=== PATIENT | male | born 1960 | race Caucasian/White ===

== ENCOUNTER 2020-04-13 10:54 | Outpatient (CLI) | payer MEDICARE, SELFPAY ==
[2020-04-13 11:18] LABS: Basophils Absolute Auto 0.03 K/mm3 (0.00-0.10); Basophils Percent Auto 0.5 % (0.0-1.0); Eosinophils Absolute Auto 0.11 K/mm3 (0.02-0.50); Hematocrit 43.3 % (40.0-54.0); Immature Granulocyte Absolute 0.02 K/mm3 (0.00-0.00); Immature Granulocyte Percent A 0.4 % (0.0-0.0); Lymphocytes Absolute Auto 1.53 K/mm3 (1.10-4.50); Lymphocytes Percent Auto 27.7 % (18.0-42.0); Mean Corpuscular HGB Conc 32.3 g/dL (32.0-36.0); Mean Corpuscular Volume 99.1 fL (78.0-102.0); Mean Platelet Volume 9.6 fl (8.7-11.0); Monocytes Absolute Auto 0.54 K/mm3 (0.10-0.90); Monocytes Percent Auto 9.8 % (2.0-11.0); Neutrophils Absolute Auto 3.3 K/mm3 (1.7-7.2); Neutrophils Percent Auto 59.6 % (50.0-70.0); Platelet Count Result 199 K/mm3 (150-420); Red Blood Count 4.37 M/mm3 (4.70-6.10); Red Cell Distribution Width 12.4 % (11.6-14.4); White Blood Count 5.5 K/mm3 (4.8-10.8)
[2020-04-13 12:27] LABS: Alanine Aminotransferase 21 U/L (16-63); Albumin Level 3.8 g/dL (3.4-5.0); Alkaline Phosphatase 106 U/L (46-116); Anion Gap 10.6 mmol/L (7-16); Aspartate Amino Transferase 17 U/L (15-37); Bilirubin,Total 0.3 mg/dL (0.00-1.00); Blood Urea Nitrogen 17 mg/dL (7-18); Calcium 8.6 mg/dL (8.5-10.1); Carbon Dioxide 31 mmol/L (21-32); Chloride 100 mmol/L (98-108); Cholesterol 181 mg/dL (0-200); Estimated Glomerular Filt Rate > 60; Glucose 83 mg/dL (70-99); HDL Direct 47 mg/dL (40-60); LDL Cholesterol Calculated 121 mg/dL (<130); Osmolality Calculated 284 mOsm/kg (285-295); Potassium 4.6 mmol/L (3.5-5.1); Sodium 137 mmol/L (136-145); Triglycerides 65 mg/dL (0-150)
[2020-04-13 13:05] LABS: Thyroid Stimulating Hormone Reflex 2.26 u/IU/mL (0.36-3.74)
== END 2020-04-13 10:55 | disposition home or self-care (01) ==
PROVIDERS: PCP Family Medicine; Visit Provider Family Medicine
DX: E03.9 Hypothyroidism, unspecified (principal); E78.5 Hyperlipidemia, unspecified
CPT/HCPCS: 36415; 80053; 80061; 84443; 85025

== ENCOUNTER 2021-04-02 21:34 | Emergency (ER) | payer MEDICARE, OTHER, SELFPAY ==
--- NOTE | ~2021-04-02 | XR_ITS ---
EXAMINATION: XR ribs LT 2V DATE: 04/02/2021 22:09 INDICATION: Left left rib pain post fall TECHNIQUE: 3 views of the left ribs were obtained. COMPARISON: None FINDINGS: Old healed anterolateral left 10th rib fracture. No acute fractures identified. Hypoplastic riblet on the right side of the L1 vertebral body. Left lung and visualized portions of the right lung are chciho ar. No pulmonary edema, pleural effusion or pneumothorax. Cardiomediastinal silhouette is normal. Oss eous excrescences along the lateral left clavicle suggesting prior left acromioclavicular joint separ ation with trauma to the coracoclavicular ligament. IMPRESSION: 1. No acute left rib fracture or acute cardiopulmonary disease in the left lung or visualized right l sonny. Reviewed, dictated and finalized at location A. IMPRESSION: 1. No acute left rib fracture or acute cardiopulmonary disease in the left lung or visualized right lung.
[2021-04-02 21:44] VITALS: BP 152/78; PULSE 80; RESP 16; TEMP 36.6; O2SAT 98
--- NOTE | 2021-04-02 21:48 | PC.NURSE ---
patient mental age of 4yrs old.
[2021-04-02] MEDS: KETOROLAC (*BKC) 60 MG/2 ML VIAL IM (21:59)
--- NOTE | 2021-04-02 22:20 | ED.GENADULT ---
HPI - General Adult General Chief complaint: Unspecified Stated complaint: rib pain L side Source: patient and family Mode of arrival: ambulatory Limitations: language barrier History of Present Illness HPI narrative: this is a 60-year-old gentleman presents after he fell earlier today after he had a seizure that was witnessed this was early this morning at around 11 in the morning currently no seizure activity no some postictal state. But patient is complaining of left lower rib pain after the seizure he apparently had a fall hitting his ribs, patient has a history of a traumatic brain injury and has right-sided weakness, currently on Tegretol for seizures. Currently no no headache no blurry vision no nausea vomiting no shortness of breath no chest pain no abdominal pain no flank pain no dysuria. Onset (ago): hour(s) Location: left ( Lower rib area) Radiation: non-radiation Severity: moderate Severity scale (1-10): 6 Quality: aching Pain Consistency: constant Relieving factors: immobilization Exacerbating factors: movement Associated symptoms: denies other symptoms and nausea/vomiting Related Data Allergies Allergy/AdvReac Type Severity Reaction Status Date / Time Penicillins Allergy Intermediate Unknown Verified 11/01/20 14:14 Sulfa (Sulfonamide Allergy Hives Verified 11/01/20 14:14 Antibiotics) Review of Systems Review of Systems: All systems reviewed & are unremarkable except as noted in HPI and below PMFSH Past Medical History Medical History (Updated 04/02/21 @ 22:26 by Jose Weiner MD) 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), closed Hyperlipidemia Hypothyroidism Seizure disorder TBI (traumatic brain injury) Family History Family History Mother Depression Family history of hypothyroidism Hypertension Social History Social History Smoking status: Never smoker Gender identity (if verbalized by the patient): Male Exam Const: General: cooperative, healthy appearing and no acute distress HENMT: Head: normal to inspection Ears: hearing grossly normal bilaterally General nose exam: Normal external nose present Face and sinus: normal facial exam Mouth: Yes Normal oral and palatal mucosa present Eyes: General: appearance normal, both eyes and all related structures Visual Dennison: normal visual dennison by confrontation Eyelids: eyelids normal Conjunctivae: conjunctivae normal Sclera: sclerae normal Neck: Neck: normal visual inspection, full ROM, no lymphadenopathy and no meningeal signs Chest: Chest palpation & inspection: normal inspection of the chest and localized rib tenderness with anteroposterior compression ( Left lower) Resp: Effort & Inspection: normal respiratory effort and able to speak in complete sentences Cardio: Jugular venous distension: no JVD Palpation: normal PMI Rate: regular rate Rhythm: regular rhythm Heart sounds: S1 normal heart sound present and S2 normal heart sound present GI: Inspection: normal to inspection Percussion: Yes normal to percussion Back/Spine/Pelvis: Back: no CVA tenderness Skin: General skin exam: normal color and no rashes or lesions noted Neuro: General: oriented to person, oriented to place, oriented to time, patient oriented x3 and tone normal Psych: Appearance: grossly normal and well kempt Mental Status: mental status grossly normal Speech and movement: Slurred speech present ( from traumatic brain injury) Course Course Emergency Course: x-ray reviewed with patient and family with no acute rib fractures patient received IM Toradol and will send medication to his pharmacy. Vital Signs Vital signs: Vital Signs Temperature 36.6 C 04/02/21 21:44 Pulse Rate 80 04/02/21 21:44 Respiratory Rate 16 04/02/21 21:44 Blood Pressure 152/78 H 04/02/21 21:44 Pulse Oximetry 98 04/02/21 21:44 Temperature 3
[2021-04-02 22:33] VITALS: BP 148/70; PULSE 88; RESP 16; TEMP 36.1; O2SAT 97
== END 2021-04-02 22:35 | disposition home or self-care (01) ==
PROVIDERS: Emergency Provider Emergency Medicine; PCP Family Medicine
DX: S23.41XA Sprain of ribs, initial encounter (principal); W19.XXXA Unspecified fall, initial encounter
CPT/HCPCS: 71100; 96372; 99283; J1885

== ENCOUNTER 2021-08-01 11:31 | Outpatient (CLI) | payer MEDICARE, SELFPAY ==
[2021-08-01 11:55] LABS: Basophils Absolute Auto 0.03 K/mm3 (0.00-0.10); Basophils Percent Auto 0.6 % (0.0-1.0); Eosinophils Percent Auto 3.7 % (1.0-6.0); Hematocrit 41.5 % (40.0-54.0); Hemoglobin 13.9 g/dL (14.0-18.0); Immature Granulocyte Absolute 0.01 K/mm3 (0.00-0.00); Immature Granulocyte Percent A 0.2 % (0.0-0.0); Lymphocytes Absolute Auto 1.73 K/mm3 (1.10-4.50); Lymphocytes Percent Auto 32.1 % (18.0-42.0); Mean Corpuscular HGB Conc 33.5 g/dL (32.0-36.0); Mean Corpuscular Hemoglobin 31.7 pg (27.0-31.0); Mean Corpuscular Volume 94.5 fL (78.0-102.0); Mean Platelet Volume 9.4 fl (8.7-11.0); Monocytes Absolute Auto 0.52 K/mm3 (0.10-0.90); Monocytes Percent Auto 9.6 % (2.0-11.0); Neutrophils Absolute Auto 2.9 K/mm3 (1.7-7.2); Neutrophils Percent Auto 53.8 % (50.0-70.0); Platelet Count Result 190 K/mm3 (150-420); Red Blood Count 4.39 M/mm3 (4.70-6.10); Red Cell Distribution Width 12.2 % (11.6-14.4); White Blood Count 5.4 K/mm3 (4.8-10.8)
[2021-08-01 13:22] LABS: Alanine Aminotransferase 24 U/L (16-63); Alkaline Phosphatase 101 U/L (46-116); Anion Gap 10 mmol/L (8-16); Aspartate Amino Transferase 13 U/L (15-37); Bilirubin,Total 0.4 mg/dL (0.00-1.00); Blood Urea Nitrogen 18 mg/dL (7-18); Calcium 8.6 mg/dL (8.5-10.1); Carbon Dioxide 28 mmol/L (21-32); Chloride 101 mmol/L (98-108); Cholesterol 190 mg/dL (0-200); Estimated Glomerular Filt Rate > 60; Glucose 87 mg/dL (70-99); HDL Direct 48 mg/dL (40-60); LDL Cholesterol Calculated 124 mg/dL (<130); Osmolality Calculated 288 mOsm/kg (285-295); Potassium 4.6 mmol/L (3.5-5.1); Sodium 139 mmol/L (136-145); Thyroid Stimulating Hormone Reflex 2.81 u/IU/mL (0.36-3.74); Triglycerides 89 mg/dL (0-150)
== END 2021-08-01 11:32 | disposition home or self-care (01) ==
LOC: CHSLAB 11:35
PROVIDERS: PCP Family Medicine; Visit Provider Family Medicine
DX: E03.9 Hypothyroidism, unspecified (principal); E78.5 Hyperlipidemia, unspecified
CPT/HCPCS: 36415; 80053; 80061; 84443; 85025

== ENCOUNTER 2022-06-26 11:27 | Outpatient (CLI) | payer MEDICARE, SELFPAY ==
[2022-06-26 11:47] LABS: Hematocrit 40.2 % (40.0-54.0); Hemoglobin 13.3 g/dL (14.0-18.0); Mean Corpuscular HGB Conc 33.1 g/dL (32.0-36.0); Mean Corpuscular Hemoglobin 32.1 pg (27.0-31.0); Mean Corpuscular Volume 97.1 fL (78.0-102.0); Mean Platelet Volume 9.4 fl (8.7-11.0); Platelet Count Result 224 K/mm3 (150-420); Red Blood Count 4.14 M/mm3 (4.70-6.10); Red Cell Distribution Width 12.7 % (11.6-14.4); White Blood Count 5.3 K/mm3 (4.8-10.8)
[2022-06-26 12:20] LABS: Alanine Aminotransferase 20 U/L (16-63); Albumin Level 3.7 g/dL (3.4-5.0); Alkaline Phosphatase 118 U/L (46-116); Anion Gap 5 mmol/L (8-16); Aspartate Amino Transferase 14 U/L (15-37); Bilirubin,Total 0.2 mg/dL (0.00-1.00); Blood Urea Nitrogen 22 mg/dL (7-18); Calcium 8.7 mg/dL (8.5-10.1); Carbon Dioxide 28 mmol/L (21-32); Chloride 103 mmol/L (98-108); Cholesterol 183 mg/dL (0-200); Estimated Glomerular Filt Rate > 60; Glucose 119 mg/dL (70-99); HDL Direct 48 mg/dL (40-60); LDL Cholesterol Calculated 114 mg/dL (<130); Osmolality Calculated 286 mOsm/kg (285-295); Potassium 4.5 mmol/L (3.5-5.1); Sodium 136 mmol/L (136-145); Triglycerides 106 mg/dL (0-150)
[2022-06-29 05:47] LABS: Carbamazepine Tegretol 9.8 mcg/mL (4.0-12.0)
== END 2022-06-26 11:28 | disposition home or self-care (01) ==
LOC: CHSLAB 11:28
PROVIDERS: PCP Family Medicine; Visit Provider Family Medicine
DX: G40.909 Epilepsy, unspecified, not intractable, without status epilepticus (principal); E78.5 Hyperlipidemia, unspecified; E11.9 Type 2 diabetes mellitus without complications; E03.9 Hypothyroidism, unspecified
CPT/HCPCS: 36415; 80053; 80061; 80156; 84443; 85027

== ENCOUNTER 2024-04-08 14:19 | Outpatient (CLI) | payer MEDICARE, SELFPAY ==
[2024-04-08 15:25] LABS: Basophils Absolute Auto 0.04 K/mm3 (0.00-0.10); Basophils Percent Auto 0.8 % (0.0-1.0); Eosinophils Absolute Auto 0.12 K/mm3 (0.02-0.50); Eosinophils Percent Auto 2.3 % (1.0-6.0); Hematocrit 43.9 % (40.0-54.0); Hemoglobin 13.1 g/dL (14.0-18.0); Immature Platelet Fraction Pct 2.6 % (1.0-7.0); Lymphocytes Absolute Auto 1.21 K/mm3 (1.10-4.50); Lymphocytes Percent Auto 23.7 % (18.0-42.0); Mean Corpuscular HGB Conc 29.8 g/dL (32-36); Mean Corpuscular Hemoglobin 31.1 pg (27.0-31.0); Mean Corpuscular Volume 104.3 fL (78.0-102.0); Mean Platelet Volume 10.3 fl (8.7-11.0); Monocytes Absolute Auto 0.52 K/mm3 (0.10-0.90); Monocytes Percent Auto 10.2 % (2.0-11.0); Neutrophils Absolute Auto 3.22 K/mm3 (1.70-7.20); Platelet Count Result 162 K/mm3 (150-420); Red Blood Count 4.21 M/mm3 (4.70-6.10); Red Cell Distribution Width 13.2 % (11.6-14.4); White Blood Count 5.1 K/mm3 (4.8-10.8)
[2024-04-08 15:47] LABS: Alanine Aminotransferase 23 U/L (16-63); Albumin Level 3.6 g/dL (3.4-5.0); Alkaline Phosphatase 88 U/L (46-116); Anion Gap 9 mmol/L (4-12); Aspartate Amino Transferase 40 U/L (15-37); Bilirubin,Total 0.5 mg/dL (0.00-1.00); Blood Urea Nitrogen 20 mg/dL (7-18); Calcium 8.5 mg/dL (8.5-10.1); Carbon Dioxide 28 mmol/L (21-32); Chloride 99 mmol/L (98-108); Estimated Glomerular Filt Rate > 60; Glucose 88 mg/dL (70-99); Osmolality Calculated 283 mOsm/kg (285-295); Sodium 136 mmol/L (136-145); Total Protein 7.1 g/dL (6.4-8.2)
[2024-04-08 15:48] LABS: Potassium 5.2 mmol/L (3.5-5.1)
[2024-04-15 09:44] LABS: Carbamazepine Tegretol 8.3 mcg/mL (4.0-12.0)
== END 2024-04-08 14:20 | disposition home or self-care (01) ==
LOC: CHSLAB 14:29
PROVIDERS: PCP Internal Medicine
DX: R56.9 Unspecified convulsions (principal)
CPT/HCPCS: 36415; 80053; 80156; 85025; 85055

== ENCOUNTER 2024-05-11 10:45 | Outpatient (RCR) | payer MEDICARE, SELFPAY ==
--- NOTE | 2024-02-25 11:20 | OPREHPOC ---
Outpatient Therapy Plan of Care This is a Multidisciplinary Plan of Care that may contain components documented by all disciplines (PT, OT, and ST.) PT Problem 1 PT Problem #1 Knowledge Deficit PT Goal 1 Goal 1. compliant with HEP 3x weekly or better Target Visit 6 PT Problem 2 PT Problem #2 Impaired Strength PT Goal 1 Goal 1. patient to display seated R hip flexion of 4/5 or better 2. patient to display 3+/5 R knee extension or better 3. patient to display 3+/5 R knee flexin or better Target Visit 12 PT Problem 3 PT Problem #3 Impaired Functional Mobil PT Goal 1 Goal 1. patient to complete 6 minute walk test without rest and with modified independence with cane 2. tinetti to display moderate fall risk or less 3. patient to complete TUG in 15 seconds or less 4. patient to report no falls while a patient of skilled PT Target Visit 12
--- NOTE | 2024-02-25 11:20 | PTOPEVAL1 ---
Assessment and note entered by JT File, PT Evaluation Information Assessment Status Evaluation Diagnosis generalized weakness 2nd to TBI Onset 02/18/24 Subjective Information patient is a poor historian from his TBI. his brother is with him this morning, and reports he is coming to therapy to get strength and move better. he reports he had a TBI back in 1990 that left him with R side weakness. his brother reports he responds to most questions with yes and no answers. patient reports he has fallen. he reports he would like to get stronger and improve his walking. Reported Pain Level Pain Score 0: Self Report Assessment PT Clinical Summary mr. ortiz is a pleasant 63 yo man who presents to skilled PT services for evaluation and treatment of weakness secondary to a TBI. he presents today with R LE weakness, L hip weakness, high fall risk , and decreased safety with transfers and ambulation. he would benefit from continued skilled PT to address his objective/functional deficits and improve his balance, strength, and ambulation to improve his quality of life and functional activity performance. Plan of Care Interventions Gait Training,Neuro Re-education,Patient/Caregiver Educati,Therapeutic Activities,Therapeutic Exercise PT Services Indicated Yes Treatment Frequency and 3x weekly for 12 visits Duration These treatments will address the objective and functional deficits as defined above. The patient will be advanced safely and appropriately in order for the patient to progress towards his/her prior level of function. Additional exercises will be introduced and as well as a comprehensive home exercise program upon discharge, if needed, ?to ensure carryover of functional gains achieved in the clinic. This treatment plan has been reviewed and agreement upon by the patient.
--- NOTE | 2024-02-27 14:08 | BUOTOPEVAL ---
Assessment and note entered by Gloria Ramírez OT Evaluation Information Assessment Status Evaluation Diagnosis TBI Onset 1990 Subjective Information The patient's family member reports that he lives with his dad and prior to his mother passing, his mother would do everything for him. The patient's family reports that their main concern is to work on his mobility. Therapist educated patient and family on use of OT to maintain/achieve independence and safety. The patient reports pain in whole arm when he tries to move the UE. The patient's family stated that they do not have ADLs goals for the patient but stated it would be nice if he could do things for himself. Reported Pain Level Pain Score 0: Self Report Pain Score 0: Self Report Assessment OT Clinical Summary The patient is a 63 year old male who was referred to outpatient OT due to TBI in 1990 with weakness from lack of mobility. The patient presents with difficulty with word finding and speech concerns making it difficult to communicate at times. The patient is able to answer yes and no questions accurately and is pleasant throughout entire evaluation. The patient demonstrates moderately to minimally impaired coordination of L hand, limited ROM of R hand with subluxation of R shoulder, and requires physical assist for daily tasks, the patient demonstrates good understanding of simple instructions. The patient requires skilled OT to address deficits and increase independence and safety at home. Plan of Care Interventions Therapeutic Exercise,Manual Therapy,Neuro Re- education,Therapeutic Activities,Hot Pack/Cold Pack,Cognitive Function,Electrical Stimulation, Self-Care/Home Management OT Services Indicated Yes Treatment Frequency and 2x/week for 10 visits. Duration These treatments will address the objective and functional deficits as defined above. The patient will be advanced safely and appropriately in order for the patient to progress towards his/her prior level of function. Additional exercises will be introduced and as well as a comprehensive home exercise program upon discharge, if needed, ?to ensure carryover of functional gains achieved in the clinic. This treatment plan has been reviewed and agreement upon by the patient.
--- NOTE | 2024-03-02 16:35 | BUSTOPEVAL1 ---
Assessment and note entered by Martha Desir, BUILDING CONSTRUCTION PROFESSOR Evaluation Information Assessment Status Evaluation Diagnosis Traumatic brain injury S06.9XAS, Cognitive- communication deficit R41.841 Subjective Information The patient was referred for a skilled ST evaluation due to ongoing difficulties with communication due suffering from a traumatic brain injury in the past. The patient primarily communicates through yes/no questions, along with saying yeah and use of gestures to communicate. Throughout the assessment the patient frequently said yeah. He also independently said, thank you, what and imitated words with prompting throughout the session. The patient reported that he gets frustrated when attempting to communicate want/needs/ideas with unfamiliar listeners. Reported Pain Level Pain Score 0: Self Report Pain Score 5: Self Report Pain Score Moderate Pain: Fisher Mohr Pain Score 0: Self Report Pain Score 0: Self Report Additional Pain Score Comments Patient often touched his right shoulder and knee and said ow. He was unable to give a number score for his pain due to difficulty with communication. Additional Pain Score Comments L knee Assessment ST Clinical Summary Patient was referred for a skilled ST evaluation by his doctor due to ongoing difficulty with communication post traumatic brain injury in the past. The patient reported that he has difficulty communicating wants/needs/ideas and will often get frustrated with communication breakdowns. Throughout the assessment the patient often spoke with the word yeah when communicating. He presented with significant difficulty in using single words, phrases, sentences, or use of graphic expression to communicate during the session. Through language testing the patient presented with good skills in object identification, simple yes/no questions, simple paragraph retention through yes/no questions, imitation of vowels, single words, confrontational naming with high frequency target common target words and copying letters, numbers and words. The patient presented with difficulty identifying body parts, answering moderate/complex yes/no questions, following 1-2 step directions, moderate paragraph retentio
--- NOTE | 2024-03-30 12:18 | OPREHPOC ---
Outpatient Therapy Plan of Care This is a Multidisciplinary Plan of Care that may contain components documented by all disciplines (PT, OT, and ST.) PT Problem 1 PT Problem #1 Knowledge Deficit PT Goal 1 Goal 1. compliant with HEP 3x weekly or better Target Visit 6 Progress Not Met PT Problem 2 PT Problem #2 Impaired Strength PT Goal 1 Goal 1. patient to display seated R hip flexion of 4/5 or better -not met 2. patient to display 3+/5 R knee extension or better -not met 3. patient to display 3+/5 R knee flexin or better -not met Target Visit 12 Progress Not Met PT Problem 3 PT Problem #3 Impaired Functional Mobil PT Goal 1 Goal 1. patient to complete 6 minute walk test without rest and with modified independence with cane - partially met 2. tinetti to display moderate fall risk or less - not tested 3. patient to complete TUG in 15 seconds or less -not met 4. patient to report no falls while a patient of skilled PT Target Visit 12 OT Problem 1 OT Problem #1 Knowledge Deficit OT Goal 1 Goal The patient's family and patient will demonstrate 100% knowledge and return demonstration for UE HEP in order to maintain strength and mobility of R UE and L UE as possible. Target Visit 10 OT Problem 2 OT Problem #2 Pain OT Goal 1 Goal The patient will demonstrate decreased subluxation of R shoulder in order to decrease pain in UE for ability to dress without pain. Target Visit 10 OT Problem 3 OT Problem #3 Impaired Range of Motion OT Goal 1 Goal The patient will demonstrate increased digit extension of R hand and improvement in elbow PROM for ability to dress without pain and decrease risk of skin breakdown. Target Visit 10 OT Problem 4 OT Problem #4 Impaired Coordination OT Goal 1 Goal The patient will demonstrate incr
--- NOTE | 2024-03-30 12:18 | PTOPPROG ---
Assessment and note entered by April Dubon, PT Evaluation Information Assessment Status Progress Diagnosis generalized weakness secondary to TBI Onset 02/18/24 Subjective Information Patient is a poor historian so his brother is giving an update. His brother reports he is noticing improved mobility since patient has started PT. He is unsure if patient has fallen as he only sees him on Tuesdays and to bring him to PT. Patient has not fallen when he has been with his brother. The brother does report that PT and OT are the only exercise patient gets and the only time patient gets out of the house. Assessment PT Clinical Summary Rayray Gonsalez has completed 10 skilled PT visits for generalized weakness. He is demonstrating improvements in endurance, sit to stand technique, and mildly with right LE strength. He continues to demonstrate a high fall risk per the TUG test, decreased endurance with 6 minute walk test, decreased right knee strength, and decreased balance. He will continue to benefit from skilled PT to further address these limitations. Plan of Care Interventions Neuro Re-education,Patient/Caregiver Educati, Therapeutic Activities,Therapeutic Exercise PT Services Indicated Yes Treatment Frequency and Continue POC x 2 more visits Duration These treatments will address the objective and functional deficits as defined above. The patient will be advanced safely and appropriately in order for the patient to progress towards his/her prior level of function. Additional exercises will be introduced and as well as a comprehensive home exercise program upon discharge, if needed, ?to ensure carryover of functional gains achieved in the clinic. This treatment plan has been reviewed and agreement upon by the patient.
--- NOTE | 2024-03-31 13:26 | BUOTOPDC ---
Assessment and note entered by Gloria Ramírez OT Evaluation Information Assessment Status Discharge Diagnosis TBI Onset 1990 Subjective Information The patient's family member reports that he lives with his dad and prior to his mother passing, his mother would do everything for him. The patient's family reports that their main concern is to work on his mobility. Therapist educated patient and family on use of OT to maintain/achieve independence and safety. The patient reports pain in whole arm when he tries to move the UE. The patient's family stated that they do not have ADLs goals for the patient but stated it would be nice if he could do things for himself. Reported Pain Level Pain Score 0: Self Report Pain Score 0: Self Report Pain Score 0: Self Report Pain Score Mild Pain: Fisher Mohr Pain Score 4,5: Self Report Pain Score 0: Self Report Pain Score Mild Pain: Fisher Mohr Pain Score 0: Self Report Pain Score 0: Self Report Pain Score 0: Self Report Pain Score 0: Self Report Pain Score 0: Self Report Pain Score 0: Self Report Pain Score 0: Self Report Pain Score 0: Self Report Pain Score 0: Self Report Pain Score 0: Self Report Pain Score Moderate Pain: Fisher Mohr Pain Score 0: Self Report Pain Score 5: Self Report Pain Score Moderate Pain: Fisher Mohr Pain Score 0: Self Report Pain Score 0: Self Report Additional Pain Score Comments L knee Additional Pain Score Comments Patient often touched his right shoulder and knee and said ow. He was unable to give a number score for his pain due to difficulty with communication. Additional Pain Score Comments L knee Assessment OT Clinical Summary The patient demonstrates significant progress in R UE ROM, education of HEP and splint usage, L UE fine motor coordination, independence with ADLs leading to maintainin
--- NOTE | 2024-03-31 13:26 | BUOTOPDC ---
Assessment and note entered by Gloria Ramírez OT Evaluation Information Assessment Status Discharge Diagnosis TBI Onset 1990 Subjective Information The patient's family member reports that he lives with his dad and prior to his mother passing, his mother would do everything for him. The patient's family reports that their main concern is to work on his mobility. Therapist educated patient and family on use of OT to maintain/achieve independence and safety. The patient reports pain in whole arm when he tries to move the UE. The patient's family stated that they do not have ADLs goals for the patient but stated it would be nice if he could do things for himself. Reported Pain Level Pain Score 0: Self Report Pain Score 0: Self Report Pain Score 0: Self Report Pain Score Mild Pain: Fisher Mohr Pain Score 4,5: Self Report Pain Score 0: Self Report Pain Score Mild Pain: Fisher Mohr Pain Score 0: Self Report Pain Score 0: Self Report Pain Score 0: Self Report Pain Score 0: Self Report Pain Score 0: Self Report Pain Score 0: Self Report Pain Score 0: Self Report Pain Score 0: Self Report Pain Score 0: Self Report Pain Score 0: Self Report Pain Score Moderate Pain: Fisher Mohr Pain Score 0: Self Report Pain Score 5: Self Report Pain Score Moderate Pain: Fisher Mohr Pain Score 0: Self Report Pain Score 0: Self Report Assessment OT Clinical Summary The patient demonstrates significant progress in R UE ROM, education of HEP and splint usage, L UE fine motor coordination, independence with ADLs leading to maintaining function of B arms and independence to highest level at end of care. The patient demonstrated good progress throughout therapy but due to medical condition and the rigidity of R UE, the patient has met highest level of function and is educated to continue
--- NOTE | 2024-04-07 11:26 | OPREHPOC ---
Outpatient Therapy Plan of Care This is a Multidisciplinary Plan of Care that may contain components documented by all disciplines (PT, OT, and ST.) PT Problem 1 PT Problem #1 Knowledge Deficit PT Goal 1 Goal 1. compliant with HEP 3x weekly or better Target Visit 6 Progress Not Met Comment only exercising when at therapy. PT Problem 2 PT Problem #2 Impaired Strength PT Goal 1 Goal 1. patient to display seated R hip flexion of 4/5 or better -met 2. patient to display 3+/5 R knee extension or better -not met 3. patient to display 3+/5 R knee flexion or better -not met Target Visit 12 Progress Partially Met PT Problem 3 PT Problem #3 Impaired Functional Mobil PT Goal 1 Goal 1. patient to complete 6 minute walk test without rest and with modified independence with cane - partially met 2. tinetti to display moderate fall risk or less - not met 3. patient to complete TUG in 15 seconds or less -not met 4. patient to report no falls while a patient of skilled PT. met Target Visit 16 OT Problem 1 OT Problem #1 Knowledge Deficit OT Goal 1 Goal The patient's family and patient will demonstrate 100% knowledge and return demonstration for UE HEP in order to maintain strength and mobility of R UE and L UE as possible. Target Visit 10 Progress Partially Met OT Problem 2 OT Problem #2 Pain OT Goal 1 Goal The patient will demonstrate decreased subluxation of R shoulder in order to decrease pain in UE for ability to dress without pain. Target Visit 10 Progress Partially Met OT Problem 3 OT Problem #3 Impaired Range of Motion OT Goal 1 Goal The patient will demonstrate increased digit extension of R hand and improvement in elbow PROM for ability to dress without pain and decrease risk of skin breakdown. Target V
--- NOTE | 2024-04-07 11:26 | PTOPREEVAL ---
Assessment and note entered by JT File, PT Evaluation Information Assessment Status Re-evaluation Diagnosis generalized weakness secondary to TBI, maintenance program Onset 02/18/24 Subjective Information reviewed recent history and changes with patient's brother as patient is a poor historian. he has had one seizure like episode this morning prior to therapy. his brother reports he has not had any for about 4 years. he reports the patient does not do much at home, and this is his only exercise/ times he leaves the home. he would like to continue to get him out of the house to exercise. he reports noticing an improvement in his movement since coming to therapy. according to his brother who sees him 2x weekly, he has had no falls in since beginning therapy. Reported Pain Level Pain Score 0: Self Report Assessment PT Clinical Summary mr. ortiz presents to skilled PT for his 12th skilled PT visit. he presents today having seizure like activity prior to coming to therapy. he does also have a seizure like episode during therapy where he became absent for about 1 minute. vitals were assessed prior to treatment beginning and were normal. he had an elevated BP during his episode, but then back to normal BP after his episode. prior to this episode, his gait, transfers, balance, and ambulation were re- assessed. he presents still with deficits in balance per the tinetti, tug, and 5x sit to stand, but improvement is made in his ambulation safety, transfer safety, and R hip strength. he would benefit from continued skilled PT under maintenance therapy protocol due to the nature of his symptoms secondary to a TBI, and patient not getting any other activity/exercises except for when coming to therapy. Plan of Care Interventions Neuro Re-education,Patient/Caregiver Educati, Therapeutic Activities,Therapeutic Exercise PT Services Indicated Yes Treatment Frequency and continue skilled PT 1x weekly for 4 more visits in Duration a maintenance program These treatments will address the objective and functional deficits as defined above. The patient will be advanced safely and appropriately in order for the patient to progress towards his/her prior level of function. Additional exercises will be introduced and as well as a comprehensive home exercise program upon discharge, if needed, ?to ensure carryover of functional gains achieved in the clinic. This treatment plan has been reviewed and agre
--- NOTE | 2024-04-19 10:40 | PCSTNOTE ---
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
--- NOTE | 2024-05-06 15:09 | OPREHPOC ---
Outpatient Therapy Plan of Care This is a Multidisciplinary Plan of Care that may contain components documented by all disciplines (PT, OT, and ST.) PT Problem 1 PT Problem #1 Knowledge Deficit PT Goal 1 Goal 1. compliant with HEP 3x weekly or better Target Visit 6 Progress Not Met Comment only exercising when at therapy. PT Problem 2 PT Problem #2 Impaired Strength PT Goal 1 Goal 1. patient to display seated R hip flexion of 4/5 or better -met 2. patient to display 3+/5 R knee extension or better -met 3. patient to display 3+/5 R knee flexion or better -met Target Visit 20 Progress Partially Met PT Problem 3 PT Problem #3 Impaired Functional Mobil PT Goal 1 Goal 1. patient to complete 6 minute walk test without rest and with modified independence with cane - met for time, not for independence 2. tinetti to display moderate fall risk or less - not met 3. patient to complete TUG in 15 seconds or less -not met, but progressed towards 4. patient to report no falls while a patient of skilled PT. met Target Visit 20 OT Problem 1 OT Problem #1 Knowledge Deficit OT Goal 1 Goal The patient's family and patient will demonstrate 100% knowledge and return demonstration for UE HEP in order to maintain strength and mobility of R UE and L UE as possible. Target Visit 10 Progress Partially Met OT Problem 2 OT Problem #2 Pain OT Goal 1 Goal The patient will demonstrate decreased subluxation of R shoulder in order to decrease pain in UE for ability to dress without pain. Target Visit 10 Progress Partially Met OT Problem 3 OT Problem #3 Impaired Range of Motion OT Goal 1 Goal The patient will demonstrate increased digit extension of R hand and improvement in elbow PROM for ability to dress without pain and decrease risk of skin breakdown. Target V
--- NOTE | 2024-05-06 15:09 | PTOPREEVAL ---
Assessment and note entered by JT File, PT Evaluation Information Assessment Status Re-evaluation Diagnosis generalized weakness secondary to TBI, maintenance program Onset 02/18/24 Subjective Information patient reports he feels Good today. he has no pain. he reports he has had no falls. Reported Pain Level Pain Score 0: Self Report Pain Score 0: Self Report Assessment PT Clinical Summary mr. ortiz presents to skilled PT for his 4th skilled therapy visit since beginning maintenance therapy. he displays improvement in TUG performance and R LE strength since his last re- evaluation. he continues to benefit from maintenance therapy due to his neurological injury of a TBI, and not being able to independently perform exercises safely and independently at home . Plan of Care Interventions Gait Training,Neuro Re-education,Patient/Caregiver Educati,Therapeutic Activities,Therapeutic Exercise PT Services Indicated Yes Treatment Frequency and continue skilled PT 1x weekly for 4 more visits Duration These treatments will address the objective and functional deficits as defined above. The patient will be advanced safely and appropriately in order for the patient to progress towards his/her prior level of function. Additional exercises will be introduced and as well as a comprehensive home exercise program upon discharge, if needed, ?to ensure carryover of functional gains achieved in the clinic. This treatment plan has been reviewed and agreement upon by the patient.
--- NOTE | 2024-05-20 13:08 | PCPTNOTE ---
Cancelled session today. Brother reports pt is still sleeping.
--- NOTE | 2024-05-20 13:30 | PCSTNOTE ---
Patient's brother called & cancelled scheduled appointment this date due to patient sleeping and is very agitated when awoken.
--- NOTE | 2024-05-27 13:16 | PCSTNOTE ---
This treatment is being continued on visit number [id number]. Please see documentation on both accounts to view progress. Completed interventions, outcomes, and problems have been marked as Inactive to facilitate the copying of the Care plan routine for recurring accounts.
== END 2024-05-25 23:59 | disposition home or self-care (01) ==
LOC: CHSST 10:45
PROVIDERS: Visit Provider Clinical Nurse Specialist Adult Health
DX: S06.9XAS Unspecified intracranial injury with loss of consciousness status unknown, sequela (principal); R41.841 Cognitive communication deficit
CPT/HCPCS: 92507; 92523; 97110; 97112; 97140; 97161; 97166; 97530; 97750

== ENCOUNTER 2024-07-22 13:00 | Outpatient (RCR) | payer MEDICARE, SELFPAY ==
--- NOTE | 2024-05-27 13:16 | PCSTNOTE ---
The treatment documented on this account is a continuation of the treatment documented on visit number [id number]. Please see documentation on both accounts to view progress. The Plan of Care has been transitioned and updated within the new A#. I have addressed and agree with the discipline specific Problems, Interventions, and Goals for the current certification period. Completed interventions, outcomes, and problems have been marked as Inactive to facilitate the copying of the Care plan routine for recurring accounts.
--- NOTE | 2024-06-03 17:57 | STOPPROG ---
Assessment and note entered by Martha Desir, MOTEL FRONT DESK ATTENDANT Evaluation Information Assessment Status Progress Diagnosis Traumatic brain injury S06.9XAS, Cognitive- communication deficit R41.841 Onset unknown, 01-19-24 Subjective Information The patient was referred for a skilled ST evaluation due to ongoing difficulties with communication due to suffering from a traumatic brain injury in the past. Prior to treatment the patient primarily communicated through yes/no questions, along with saying yeah and use of gestures to communicate. He produced a few words independently but mainly required assistance to attempt to respond through verbal means. The patient has completed a total of [address] treatment sessions since the evaluation. He has demonstrated improvements in one and two step verbal directions, moderately complex yes/no questions, single letter and word comprehension skills, automatic speech and single word imitation skills. The patient reported that he gets frustrated when attempting to communicate want/ needs/ideas with unfamiliar listeners. Assessment ST Clinical Summary Patient was referred for a skilled ST evaluation by his doctor due to ongoing difficulty with communication post traumatic brain injury in the past. The patient reported that he had difficulty communicating wants/needs/ideas and would often get frustrated with communication breakdowns. The patient has completed a total of [address] sessions for the treatment of cognitive- communication deficits. The patient has shown improvements in answering moderate level complexity yes/no questions, following 1 step directions with 90% accuracy and two step directions with 50% accuracy, single word comprehension skills, simple item naming and imitation at the single word level. The patient continues to show improvements in single word use, imitation skills and an increase in attempt to use words more frequently with independence. The patient continues to struggle to communicate through words and often relies on gestures to attempt to get his point across. Frequently the attempt is given but the listener in unable to understand what the patient is saying. These deficits impact the patient's ability to communicate wants/needs/ideas in various
--- NOTE | 2024-06-10 15:02 | OPREHPOC ---
Outpatient Therapy Plan of Care This is a Multidisciplinary Plan of Care that may contain components documented by all disciplines (PT, OT, and ST.) PT Problem 1 PT Problem #1 Knowledge Deficit PT Goal 1 Goal 1. compliant with HEP 3x weekly or better Target Visit 6 Progress Not Met Comment . PT Problem 2 PT Problem #2 Impaired Strength PT Goal 1 Goal 1. patient to display seated R hip flexion of 4/5 or better -met 2. patient to display 3+/5 R knee extension or better -met 3. patient to display 3+/5 R knee flexion or better -met Target Visit 20 Progress Met PT Problem 3 PT Problem #3 Impaired Functional Mobil PT Goal 1 Goal 1. patient to complete 6 minute walk test without rest and with modified independence with cane - met 2. tinetti to display moderate fall risk or less - not met 3. patient to complete TUG in 15 seconds or less -not met, but progressed towards 4. patient to report no falls while a patient of skilled PT. met Target Visit 20 Progress Partially Met OT Problem 1 OT Problem #1 Knowledge Deficit OT Goal 1 Goal The patient's family and patient will demonstrate 100% knowledge and return demonstration for UE HEP in order to maintain strength and mobility of R UE and L UE as possible. Target Visit 10 Progress Partially Met OT Problem 2 OT Problem #2 Pain OT Goal 1 Goal The patient will demonstrate decreased subluxation of R shoulder in order to decrease pain in UE for ability to dress without pain. Target Visit 10 Progress Partially Met OT Problem 3 OT Problem #3 Impaired Range of Motion OT Goal 1 Goal The patient will demonstrate increased digit extension of R hand and improvement in elbow PROM for ability to dress without pain and decrease
--- NOTE | 2024-06-10 15:02 | PTOPDC ---
Assessment and note entered by JT File, PT Evaluation Information Assessment Status Discharge Diagnosis generalized weakness secondary to TBI, maintenance program Onset 02/18/24 Subjective Information patient reports no pain in therapy. his brother is with him today to review progress and future plans. patient has been compliant with 1x weekly skilled maintenance rehab for the past 8 weeks. Reported Pain Level Pain Score 0: Self Report Pain Score 0: Self Report Assessment PT Clinical Summary patient reports no pain in therapy. his brother is with him today to review progress and future plans. patient has been attending maintenance therapy for about 8 weeks now. he is maintaining ambulation, balance, and functional performance. at this time, patient and his brother were educated about trying our fall prevention class and taking a break from continued skilled maintenance therapy. they are in agreement with this plan. he will DC skilled maintenance therapy today, and continue with fall prevention class 1-2 times a week. Plan of Care PT Services Indicated Yes
--- NOTE | 2024-07-22 17:41 | STOPDC ---
Assessment and note entered by Martha Desir, DOPE AND FABRIC WORKER Evaluation Information Assessment Status Discharge Diagnosis Traumatic brain injury S06.9XAS, Cognitive- communication deficit R41.841 Onset unknown, 01-19-24 Subjective Information The patient was referred for a skilled ST evaluation due to ongoing difficulties with communication due to suffering from a traumatic brain injury in the past. Prior to treatment the patient primarily communicated through yes/no questions, along with saying yeah and use of gestures to communicate. He produced a few words independently but mainly required assistance to attempt to respond through verbal means. The patient has completed a total of [address] treatment sessions since the evaluation. He has demonstrated improvements in one and two step verbal directions, moderately complex yes/no questions, single letter and single word comprehension skills, automatic speech and single word imitation skills. The patient has recently plateaued with overall skills and skilled ST treatment is no longer warranted at this time. Reported Pain Level Pain Score 0: Self Report Assessment ST Clinical Summary Patient was referred for a skilled ST evaluation by his doctor due to ongoing difficulty with communication post traumatic brain injury in the past. The patient reported that he had difficulty communicating wants/needs/ideas and would often get frustrated with communication breakdowns. The patient has completed a total of [address] sessions for the treatment of cognitive- communication deficits since the initial evaluation on 03-02-24. The patient has shown improvements in answering moderate level complexity yes/no questions, following 1 step directions with 90% accuracy and two step directions with 40-50% accuracy, single word comprehension skills, 2-3 word comprehension skills, simple item naming and imitation at the single word level. The patient continues to show improvements in single word use, imitation skills and an increase in attempt to use words more frequently with independence but has currently reached max rehab potential at this time. The patient continues to exhibit difficulty using single words to communicate and often resorts to use of gestures to
== END 2024-07-22 13:45 | disposition home or self-care (01) ==
LOC: CHSST 13:00
PROVIDERS: Visit Provider Clinical Nurse Specialist Adult Health
DX: S06.9XAS Unspecified intracranial injury with loss of consciousness status unknown, sequela (principal); R41.841 Cognitive communication deficit
CPT/HCPCS: 92507; 97110; 97112

== ENCOUNTER 2025-01-01 17:53 | Emergency (ER) | payer MEDICARE, SELFPAY ==
--- NOTE | ~2025-01-01 | XR_ITS ---
XR ribs RT 2V Ordering provider: Jose Weiner MD History: . Fall, posterior Rt. rib pain . Comparison: April 12, 2021 FINDINGS: BONES: No acute right rib fracture or fracture of the visualized osseous structures. Possible fracture in the fifth rib anteriorly. LUNGS: No effusions or infiltrates. No pneumothorax. SOFT TISSUES: Normal. IMPRESSION: Possible fracture in the right fifth rib anteriorly. Clinical correlation advised. Reviewed, dictated and finalized at location A. [facility] IMPRESSION: Possible fracture in the right fifth rib anteriorly. Clinical correlation advis ed.
--- OUTSIDE RECORDS SUMMARY | 2025-01-01 17:55 | XMS_ITS | Encounter Summary ---
Author Organization [employer] Address [address] [place] [address] Care Team Providers Care Cotton Converter Name Role Phone Unavailable Primary Care Provider Unavailabl e Encounter Details Date Type Department Care Team (Late st Contact Info) Description 09/21/2007 Outpatient Historical Division of Neurology 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
--- OUTSIDE RECORDS SUMMARY | 2025-01-01 17:55 | XMS_ITS | Encounter Summary ---
Author Organization [employer] Address 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 Gender Identity Not on file Sexual Orientation Not on file documented as of this encounter Plan of Treatment Not on file documented as of this encounter Procedures Procedure Name Priority Date/Time Associated Diagnosis Comments CARBAMAZEPINE LEVEL Routine 04/24/2005 1 0:43 AM CDT documented in this encounter Results * CARBAMAZEPINE LEVEL (04/24/2005 10:43 AM CDT) CARBAMAZEPINE LEVEL 11.3 4.0 - 12.0 ug/mL INTERFACE SYSTEM Comment:Carbamazepine Toxic Level => 20 ug/mL 04/24/2005 10:4 3 AM CDT us Robbi Shelley MD CHEMISTRY ORDERABLES Final Resu lt INTERFACE SYSTEM Refer to clinic/hospital department documented in this encounter Visit Diagnoses Diagnosis Intracranial injury of other and unspecified nature, without mention of open intracranial wound, with no loss of consciousness (CMS/HCC)- Primary Intracranial injury of other and unspecified nature, without mention of open intracranial wound, with no loss of consciousness documented in this encounter
--- OUTSIDE RECORDS SUMMARY | 2025-01-01 17:55 | XMS_ITS | Encounter Summary ---
Author Organization [employer] Address [address] [place] [address] Care Team Providers Care Core Java Engineer Name Role Phone Unavailable Primary Care Provider Unavailabl e Encounter Details Date Type Department Care Team (Latest Contact Info) Description 04/08/2001 Outpatient Historical [facility] Shelley, MD Robbi NO ADDRESS ON FILE Intracranial injury of other and unspecified nature, without mention of open intracranial wound, with no loss of consciousness (CMS/HCC) (Primary Dx) Social History Tobacco Use Types Packs/Day Years Used Date Smoking Tobacco: Never Assessed Sex and Gender Information Value Date Recorded Sex Assigned at Not on file 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
--- OUTSIDE RECORDS SUMMARY | 2025-01-01 17:55 | XMS_ITS | Clinical Summary ---
Author Organization [facility] Address [address], [address] [address] Phone Care Team Providers Care Resaw Tailer Name Role Phone Flynn Pryor MD Primary Care Provider [phone] Liana Barraza APRN, HEEL PACKER Unavailable [phone]- [phone] Allergies Active Allergy Reactions Criticality Noted Date Comments Other Unknown Allergic to Most Antibiotics ( Is able to take CECLOR) Medications latanoprost (XALATAN) 0.005 % SolutionIndicati ons:Increased Intraocular Pressure Place 1 Drop in both eyes nightly. Indications: Increased Pressure Within the Eye 4 Active clomiPRAMINE (ANAFRANIL) 25 MG CapsuleIndicatio ns:Obsessive-com pulsive disorder, unspecified type TAKE 1 CAPSULE BY MOUTH EVERY DAY AT NIGHT 90 Capsule 1 4 Active levothyroxine (SYNTHROID) 25 MCG Tablet TAKE 1 TABLET BY MOUTH EVERY DAY 90 Tablet 3 4 Active atorvastatin (LIPITOR) 20 MG Tablet Take 1 Tablet by mouth daily. 90 Tablet 5 Active pantoprazole (PROTONIX) 40 MG Tablet Delayed Response TAKE 1 TABLET BY MOUTH EVERY DAY 90 Tablet 5 Active TEGretol 200 MG Tablet TAKE 1 TABLET BY MOUTH 3 TIMES DAILY WITH MEALS 270 Tablet 1 5 Active Active Problems Problem Noted Date Diagnosed Date Traumatic brain injury 09/10/2016 Seizures Overview (09/26/2015): After Accident 1989 Mixed hyperlipidemia Hypothyroidism due to acquired atrophy of thyroi d Resolved Problems Problem Noted Date Diagnosed Date Resolved Date Needs flu shot 07/21/2017 10/29/2017 Guaiac + stool 05/05/2018 Encounters Date Type Department Care Team Description 11/27/2024 Refill [facility] [place] 2[place] - [place] [address] [place] [address] Flynn Pryor MD Medication Refill 11/09/2024 [facility] [place] [facility] [place] [address] Flynn Pryor MD Medication Refill 11/02/2024 Refill [facility] [place] [facility] [place] [address] Flynn Pryor MD Medication Refill (atorvastatin) from Last 3 Months Immunizations Immunization Administration Dates Next Due Covid-19, Mrna, Lnp-s, Pf, 3 0 Mcg/0.3 Ml Dose, Heriberto-sucrose (Pfizer bateman top) 08/12/2024 Influenza Vaccine greater than 3 yrs 08/11/2018, 10/27/2012 Influenza Vaccine, MDCK,quadrivalent, pres free 08/21/2023,08/01/2022 Influenza Vaccine, Quadrivalent, PF 07/21/2017,1 Influenza, Injectable, Quadrivalent 08/04/2019 Influenza, Seasonal, Injectable, Undefined 08/01 Influenza, high-dose, trivalent, PF 08/12/2024 PUR FLU 3+ YRS PRES FREE QUAD IM 09/10/2016 Pneumococcal Vaccine - 13 Valent 04/18/2017 Pneumococcal Vaccine Adult - 23 Valent 8 TD VACCINE 10/29/2017 TDAP Vaccine 09/26/2006 Family History Medical History Relation Name Comments Cancer Brother Colon Heart Disease Father Congestive Heart Failure Mother Heart Attack Mother Other-comment Mother DEGENERATIVE J OINT DISEASE Stroke Mother Cancer Paternal Grandmother Relation Name Status Comments Brother Father Alive Mother Paternal Grandmother Social History Tobacco Use Types Packs/Day Years Used Date Smoking Tobacco: Never Smokeless Tobacco: Never Tobacco Cessation:Counseling Given: Not Answered Alcohol Use Standard Drinks/Week Comments No 0 (1 standard drink = 0.6 oz pur e alcohol) [facility] Utilities Answer Date Recorded In the past 12 months has th e electric, gas, oil, or water company threatened to shut off services in your home? No 05/03/2024 Social Connection and Isolat ion Panel [NHANES] Answer Date Recorded In a typical week, how many times do you talk on the phone with family, friends, or neighbors? More than three times a week 05/03/2024 How often do you get togethe r with friends or relatives? Twice a week 05/03/2024 How often do you attend chur ch or baptist services? Never 05/03/2024 Do you belong to any clubs o r organizations such as catholic groups, unions, fraternal or athletic groups, or school groups? No 05/03/2024 How often do you attend meet ings of the clubs or organizations you belong to? Never 05/03/2024 Are you , , di vorced, , never , or living with a partner? Never 05/03/2024 AUDIT-C Answer Date Recorded Q1: How often do you have a drink containing alcohol? Never 05/03/2024 Q2: How many drinks containi ng alcohol do you have on a typical day when you are drinking? Patient does not drink Q3: How often do you have si x or more drinks on one occasion? Never 05/03/2024 Overall Financial Resource Strain (CARDIA) Answe r Date Recorded How hard is it for you to pa y for the very basics like food, housing, medical care, and heating? Not hard at all 05/03/2024 PHQ-2 Answer Date Recorded Total Score - Questions 1-9 0 0 05/2024 [facility] - Occupational Stress Questionnaire Answer Date Recorded Do you feel stress - tense, restless, nervous, or anxious, or unable to sleep at night because your mind is troubled all the time - these days? Not at all 05/03/2024 Exercise Vital Sign Answer Date Recorde d On average, how many days pe r week do you engage in moderate to strenuous exercise (like a brisk walk)? 1 day 05/03/2024 On average, how many minutes do you engage in exercise at this level? 30 min 05/03/2024 Hunger Vital Sign Answer Date Recorded Within the past 12 months, y ou worried that your food would run out before you got the money to buy more. Never true 05/03/20 24 Within the past 12 months, t he food you bought just didn't last and you didn't have money to get more. Never true 05/03/2024 PRAPARE - Transportation Answer Date Re corded In the past 12 months, has l ack of transportation kept you from medical appointments or from getting medications? No 05/2024 In the past 12 months, has l ack of transportation kept you from meetings, work, or from getting things needed for daily living? No 05/03/2024 Housing Stability Vital Sign Answer Mehul e Recorded In the last 12 months, was t here a time when you were not able to pay the mortgage or rent on time? No 05/03/2024 In the past 12 months, how m any times have you moved where you were living? 0 05/03/2024 At any time in the past 12 m [facility], were you homeless or living in a jail (including now)? No 05/03/2024 Sex and Gender Information Value Date Recorded Sex Assigned at Not on file Legal Sex Male 7:59 PM CDT Gender Identity Not on file Sexual Orientation Not on file Last Filed Vital Signs Vital Sign Reading Time Taken Comments Blood Pressure 110/72 07/13/2024 10:38 AM CDT Pulse 83 07/13/2024 10:38 AM CDT Temperature 36.7 C (98 F) 07/13/2024 10:38 AM CDT Respiratory Rate 16 07/13/2024 10:38 AM CDT Oxygen Saturation 98% 07/13/2024 10:38 AM CDT Inhaled Oxygen Concentration - - Weight 52.8 kg (116 lb 4.8 oz) 07/13/2024 10:38 AM CDT Height 170.2 cm (5' 7 ) 07/13/2024 10:38 AM CDT Body Mass Index 18.22 07/13/2024 10:38 AM CDT Plan of Treatment Upcoming Encounters Date Type Department Care Team (Late st Contact Info) Description 02/10/2025 10:30 AM CDT Office Visit [facility] - Neurology [facility] [address] [place] [id number] Liana Barraza, ELECTRICIAN APPRENTICE POWERHOUSE, HEEL PACKER [address] [place] [address] 05/25/2025 11:00 AM CDT Office Visit [facility] - Primary Care - [place] [address] [place] [address] Flynn Pryor MD [address] [place] [address] Health Maintenance Due Date Last Done Comments Colonoscopy 2007 Cologuard 2012 Zoster Immunization (1 of 2) 2012 Colorectal Cancer Screening 11/06/2017 Immunochemical Fecal Occult Blood 11/05/2018 11/05/2017, 03/07/2016 Pneumococcal Immunization (50+ years) (3 of 3 - PCV20 or PCV21) 04/18/2022 04/18/2017, 10/27/1997 SARS-COV-2 Immunization ( season) 2024 08/12/2024, 08/21/2023, 08/01/2022, Additional history exists Td Immunization Every 10 Years (Adults With 1 Tdap) 10/29/2027 10/29/2017, 09/26/2006 Respiratory Syncytial Virus (RSV) Immunization (Adult) (1 - 1-dose 75+ series) 2037 PSA Discussion Completed 02/27/2016 Pneumococcal Immunization Combined Discontinued 04/18/2017, 10/27/1997 Hepatitis C Virus (HCV) Screening Completed 05/24/2024 Influenza Immunization Completed , 08/21/2023, 08/01/2022, Additional history exists Hepatitis B Immunization Aged Out No longer eligible based on patient's age to complete this topic Meningococcal Immunization (ACWY) Aged Out No longer eligible based on patient's age to complete this topic Rotavirus Immunization Aged Out No lo nger eligible based on patient's age to complete this topic Procedures Procedure Name Priority Date/Time Associated Diagnosis Comments HEPATITIS C ANTIBODY Routine 05/24/2024 11:23 AM CDT Encounter for hepatitis C screening test for low risk patient STOOL, OCCULT BLOOD IMMUNOASSAY (IFOB) Routine 11/05/2017 10:30 AM SUPERVISOR GROUNDS Screen for colon cancer PSA SCREEN Routine 02/27/2016 9:59 AM CDT Routine general medical examination at a health care facility (Adult) Medication management Prostate cancer screening Seizures Hyperlipidemia, unspecified hyperlipidemia type Hypothyroidism, unspecified type from Last 3 Months or Most Recently Relevant to Health Maintenance Results * HEPATITIS C ANTIBODY (05/24/2024 11:23 AM CDT) Pathologist [facility] hepatitis C antibody 0.10 <1 S/CO 05/24/2024 9:08 PM CDT [facility] Comment: Signal/Cutoff ratio < 0.79 is Nondetected Signal/Cutoff ratio 0.80-0.99 is Grayzone Signal/Cutoff ratio > 0.99 is Detected Supplemental assays are recommended if signal/cutoff ratio is >/=1.00. Signal/cutoff ratio result >/= 5.00 is 97% predictive of positivity for recombinant immunoblot assay (RIBA) and will be reported to the [place] Department of Public Health as required. Blood Venipuncture / Unknown 05/24/2024 11:23 AM CDT 05/24/2024 11:23 AM CDT us Flynn Pryor MD CHEMISTRY ORDERABLES Mary Kay caba Result [facility] [address] [facility] [place] [address], * STOOL, OCCULT BLOOD IMMUNOASSAY (IFOB) (11/05/2017 10:30 AM SUPERVISOR GROUNDS) Pathologist [facility] OCCULT BLOOD - IFOB Negative Negative 11/06/2017 1:10 AM SUPERVISOR GROUNDS [facility] Specimen of unknown material (specimen) STOOL SPECIMEN / Unknown Non-Phlebotomy Collection / Unknown 11/05/2017 10:30 AM SUPERVISOR GROUNDS 11/05/2017 10:30 AM SUPERVISOR GROUNDS us Flynn Pryor MD BODY FLUIDS & STOOLS CARMELA WEI Final Result [facility] [address] [place] [address], [place] * PSA SCREEN (02/27/2016 9:59 AM CDT) PSA SCREEN, TOTAL 0.57 0.00 - 4.00 ng/mL 02/27/2016 12:51 PM CDT [facility] Blood specimen (specimen) Venipuncture / Unknown 02/27/2016 9:59 AM CDT 02/27/2016 10:13 AM CDT Narrative [facility] - 02/27/2016 12:51 PM CDT PSA NOTE: The PSA value should be used in conjunction with information available from clinical evaluation and other diagnostic procedures. us Sourav Porras DO CHEMISTRY ORDERABLES Final Resul t [facility] [address] [place] [address] from Last 3 Months or Most Recently Relevant to Health Maintenance Insurance MEDICARE C [facility] Care Teams Resaw Tailer Relationship Specialty Start Date End Date Flynn Pryor MD [address] [place] [address] PCP - General Internal Medicine 05/21/23 Liana Barraza APRN, HEEL PACKER [address] [place] [address] Nurse Practitioner Advanced Practice Nurse 03/24/24 Carrie Casey OD Consulting Physician Optometry 05/24/24
--- OUTSIDE RECORDS SUMMARY | 2025-01-01 17:55 | XMS_ITS | Encounter Summary ---
Author Organization [facility] Address [address] [place] [address] Care Team Providers Care Raker Buffing Wheel Name Role Phone Unavailable Primary Care Provider Unavailabl e Encounter Details Date Type Department Care Team (Latest Contact Info) Description 04/20/2003 Outpatient Historical HIS [facility] LACY Shelley, MD Robbi NO ADDRESS ON FILE BRAIN INJURY NEC-NO COMA (CMS/HCC) (Primary Dx) Social History Tobacco Use Types Packs/Day Years Used Date Smoking Tobacco: Never Assessed Sex and Gender Information Value Date Recorded Sex Assigned at Not on file Legal Sex Male 5:28 AM EMPLOYMENT EVALUATOR/CASE MANAGER Gender Identity Not on file Sexual [...]
--- OUTSIDE RECORDS SUMMARY | 2025-01-01 17:55 | XMS_ITS | Clinical Summary ---
Author Organization [employer] Address [address] 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
--- OUTSIDE RECORDS SUMMARY | 2025-01-01 17:55 | XMS_ITS | Encounter Summary ---
Author Organization [facility] ? Address 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
--- OUTSIDE RECORDS SUMMARY | 2025-01-01 17:55 | XMS_ITS | Continuity of Care Document ---
Author Organization [facility] Address [address] [place] [address] Phone Care Team Providers Care Spar Cap Beveler Name Role Phone Carrie Casey OD Unavailable Unavailable Allergies, Adverse Reactions, Alerts Substance Reaction Status Criticality No Known Allergies Active No Inform ation Medications Medication Instructions Dosage Effective Dates (start - stop) Status Comments latanoprost 0.005 % eye drops instill 1 drop by ophthalmic route every day in both eyes in the evening 1 drop - Active 90 day supply Tegretol 200 mg tablet take 1 tablet by oral route every 12 hours 200 MG - Active pantoprazole 40 mg tablet,delayed release take 1 tablet by oral route every 2 days 40 MG - Active levothyroxine 25 mcg capsule take 1 capsule by oral route every day 25 MCG - Active atorvastatin 20 mg tablet take 1 tablet by oral route every day 20 MG - Active latanoprost 0.005 % eye drops instill 1 drop by ophthalmic route every day in both eyes in the evening 1 drop - No Longer Active Procedures Procedure Date Corneal Pachymetry No Charge Optomap Fundus Photos Office/outpatient Visit, Est SCODI, Posterior Segment No Charge Optomap Fundus Photos Office/outpatient Visit, New Refraction Advance Directives Directive Yes / No Effective Date File Name No Information Encounters Encounter Description Practice Location Reason(s) For Visit Diagnoses Date Provider Providers Copied on Encounter Office/outpa tient Visit, [facility], [address], [place], [place], [id number], tel:[phone] SEC Herbert TAYLOR Professional 1 Mo IOP Check (chief complaint) Primary open-angle glaucoma, bilateral, indeterminate stage Jun- 4 Jacinto Butler. [address], [address], [place], [place], [id number], . tel:[phone] Referring Provider: Carrie Cabrera, [facility] [address], [place], [address] . tel:[phone] Office/outpa tient Visit, [facility], [facility], [facility] [address], [place], [place], [id number], tel:[phone] SEC Herbert BRANDON Professional Complete Exam (chief complaint) Combined forms of age-related cataract, bilateralPrima ry open-angle glaucoma, bilateral, indeterminate stageDermatoch alasis of right upper eyelidDermatoc halasis of left upper eyelidUnspecif ied ptosis of left eyelid 4 Jacinto Butler. [facility] [address], [place], [place], [address], . tel:[phone] Referring Provider: Carrie Cabrera, [facility] [address], [place], [address] . tel:[phone] Family History Family Member Type Diagnosis Age At Onset No Information Payers Payer name Insurance type Covered green party ID Gray babb(s) [facility] Mdcr Adv CI [id number] Social History Type Description Quantity Date Captured Comments Alcohol Use Details No Caffeine Use Details Tobacco Use Status Current non-smoker Smoking Status Never smoker Non-Smoking Tobacco Use Details : No Details Available : No Details Available Sex Male Chief Complaint And Reason For Visit From encounter dated '07/20/2024 13:15'. 1 Mo IOP Check (chief complaint). Description: The 64 year old patient presents for evaluation of 1Mo IOP Check in the right eye and left eye. Pt states no changes in OU since last. Pt has been taking Latanoprost. Reason For Referral Reason For Referral No Information Plan Of Treatment Date Type Action Status Appointment Rayray Gonsalez BOOKED Patient Education Open-Angle Glaucoma: Ca re Instructions completed Patient Education Cataracts: Care Instruc tions completed History Of Present Illness Encounter Date Complaint History Of Prese nt Illness 1 Mo IOP Check The 64 year old patient presents for evaluation of 1 Mo IOP Check in the right eye and left eye. Pt states no changes in OU since last. Pt has been taking Latanoprost. Complete Exam The 63 year old patient presents for evaluation of CRITICAL CARE PARAMEDIC Complete Exam in the right eye and left eye. Pts brother is here as caregiver. Pts brother states the pt has always wanted glasses to read. Pts brother states pt seems to see ok at a distance. Pts mother was his cement finisher prior to her passing and always took him to appointments so unsure when he last saw an eye doctor. Pt is mostly non verbal and had difficult time with refraction/vision check. Pt is wanting to get new glasses and they are aware of the fee. Functional Status Date Functional Assessmen t No Information Instructions Date Instruction Additional Infor mike Impression/Plan Impression/Plan Assessments Type Assessment Date assessment Primary open-angle glaucoma, lucy ateral, indeterminate stage Patient Care Teams Name Effective Dates (start - stop) Status Members No Information
--- OUTSIDE RECORDS SUMMARY | 2025-01-01 17:55 | XMS_ITS | Encounter Summary ---
Author Organization [facility] Address [address] [place] [address] Phone Care Team Providers Care Store Consultant Name Role Phone Flynn Pryor MD Primary Care Provider [phone] Liana Barraza APRN, [facility] Unavailable [phone] Reason for Visit * Reason Comments Medication Refill Encounter Details Date Type Department Care Team (Late st Contact Info) Description 06/04/2024 Refill [facility] - Primary Care - [place] [address] [place] [address] Flynn Pryor MD [address] [place] [address] Medication Refill Social History Tobacco Use Types Packs/Day Years Used Date Smoking Tobacco: Never Smokeless Tobacco: Never Alcohol Use Standard Drinks/Week Comments No 0 (1 standard drink = 0.6 oz pur e alcohol) [facility] Utilities Answer Date Recorded In the past 12 months has [employer], gas, oil, or water [employer] threatened to shut off services in your [...] 05/03/2024 How often do you attend chur or methodist services? Never 05/03/2024 Do you belong to any clubs o r organizations such as pentecostal groups, unions, fraternal or athletic groups, or [...] Recorded Total Score - Questions 1-9 0 05/2024 [facility]at [facility] - Occupational Stress [...] any time in the past 12 m [facility], were you homeless or living in a mcc (including now)? No 05/03/2024 Sex and Gender Information Value Date Recorded Sex Assigned at Not on file Legal Sex Male 7:59 PM CDT Gender Identity Not on file Sexual Orientation Not on file documented as of this encounter Miscellaneous Notes * Telephone Encounter - Flynn Pryor MD - 06/04/2024 8:13 AM CDT Refill request approved. * Telephone Encounter - Salome Villegas RN - 06/04/2024 8:11 AM CDT Medication failed the protocol, provider to review and approve the medication order if appropriate. Requested Prescriptions Pending Prescriptions Disp Refills TEGretol 200 MG Tablet [Pharmacy Med Name: TEGRETOL 200 MG TABLET] 270 Tablet 0 Sig: TAKE 1 TABLET BY MOUTH 3 TIMES DAILY WITH MEALS Not Delegated - Anticonvulsants Excluding Benzodiazepines Protocol Failed - 06/04/2024 12:37 AM Failed - This refill cannot be delegated Passed - Visit with relevant provider in past 12 months or upcoming 90 days Recent Visits Date Type Provider Dept 05/24/24 Office Visit Flynn Pryor MD [facility] 11/03/23 Office Visit Flynn Pryor MD [facility] Showing recent visits within past 365 days and meeting all other requirements Future Appointments No visits were found meeting these conditions. Showing future appointments within next 90 days and meeting all other requirements documented in this encounter Plan of Treatment Upcoming Encounters Date Type Department Care Team (Late st Contact Info) Description 02/10/2025 10:30 AM CDT [facility] [place] [address] [place] [address] Liana Barraza APRN, [place] [address] [place] [address] 05/25/2025 11:00 AM CDT Office Visit [facility] - Primary Care - [place] [address] [place] [address] Flynn Pryor MD [address] [place] [address] documented as of this encounter Visit Diagnoses Not on filedocumented in this encounter Additional Health Concerns Assessment Noted Time PHQ-9 Depression Total Score: 0 05/03/20 24 11:05 AM CDT documented as of this encounter Care Teams Store Consultant Relationship Specialty Start Date End Date Flynn Pryor MD [address] [place] [address] PCP - General Internal Medicine 05/21/23 Liana Barraza APRN, [place] [address] [place] [address] Nurse Practitioner Advanced Practice Nurse 03/24/24 Carrie Casey OD Consulting Physician Optometry 05/24/24 documented as of this encounter
--- OUTSIDE RECORDS SUMMARY | 2025-01-01 17:55 | XMS_ITS | Encounter Summary ---
Author Organization [employer] Address [address] [place] [address] Care Team Providers Care Arborist Name Role Phone Unavailable Primary Care Provider Unavailabl e Encounter Details Date Type Department Care Team (Latest Contact Info) Description 03/17/[address] [facility] LACY Shelley, MD Robbi NO ADDRESS ON FILE Encounter for long-term (current) use of other medications (Primary Dx) Social History Tobacco Use Types Packs/Day Years Used Date Smoking Tobacco: Never Assessed Sex and Gender Information Value Date Recorded Sex Assigned at Not on file Legal Sex Male 5:28 AM PRIVATE DUTY RN Gender Identity Not on file Sexual Orientation Not on file documented as of this encounter Plan of Treatment Not on file documented as of this encounter Visit Diagnoses Diagnosis Encounter for long-term (current) use of other medications- Primary documented in this encounter
--- OUTSIDE RECORDS SUMMARY | 2025-01-01 17:55 | XMS_ITS | Encounter Summary ---
Author Organization [employer] Address 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
--- OUTSIDE RECORDS SUMMARY | 2025-01-01 17:55 | XMS_ITS | Encounter Summary ---
Author Organization [employer] Address [address] [place] [address] Care Team Providers Care Siebel Consultant Name Role Phone Unavailable Primary Care Provider Unavailabl e Encounter Details Date Type Department Care Team (Late st Contact Info) Description 03/17/2000 Outpatient Historical HIS [facility] Robbi Shelley MD NO ADDRESS ON FILE Intracranial injury of other and unspecified nature, without mention of open intracranial wound, unspecified state of consciousness (CMS/HCC) (Primary Dx) Social History Tobacco Use Types Packs/Day Years Used Date Smoking Tobacco: Never Assessed Sex and Gender Information Value Date Recorded Sex Assigned at Not on file Legal Sex Male 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
[2025-01-01 17:56] VITALS: BP 140/83; PULSE 94; RESP 18; TEMP 36.3; O2SAT 100
--- OUTSIDE RECORDS SUMMARY | 2025-01-01 18:16 | XMS_ITS | Continuity of Care Document ---
Author Organization [facility] Address [address] [place] [address] Phone Care Team Providers Care Hotel Sales Manager Name Role Phone Carrie Casey OD Unavailable [...] Copied on Encounter Office/outpa tient Visit, [facility], [address], [place], [place], [id number], tel:[phone] SEC Herbert TAYLOR Professional 1 Mo IOP Check (chief complaint) Primary open-angle glaucoma, bilateral, indeterminate stage Jun- 4 Jacinto Butler. [address], [address], [place], [place], [id number], . tel:[phone] Referring Provider: Carrie Cabrera, [facility] [address], [place], [address] . tel:[phone] Office/outpa tient Visit, [facility], [facility], [facility] [address], [place], [place], [id number], tel:[phone] SEC Herbert BRANDON Professional Complete Exam (chief complaint) Combined forms of age-related cataract, bilateralPrima ry open-angle glaucoma, bilateral, indeterminate stageDermatoch alasis of right upper eyelidDermatoc halasis of left upper eyelidUnspecif ied ptosis of left eyelid 4 Jacinto Butler. [facility] [address], [place], [place], [id number], . tel:[phone] Referring Provider: Carrie Cabrera, [facility] [address], [place], [address] . tel:[phone] Family History Family Member Type Diagnosis Age At Onset No Information Payers Payer name Insurance type Covered republican ID Gray babb(s) [facility] Mdcr Adv CI [id number] Social History Type Description Quantity Date Captured [...] year old patient presents for evaluation of ANALYSIS TESTER Complete Exam in the right eye and left eye. Pts brother is here as caregiver. Pts brother states the pt has always wanted glasses to read. Pts brother states pt seems to see ok at a distance. Pts mother was his sheep shearer prior to her passing and always took [...]
--- OUTSIDE RECORDS SUMMARY | 2025-01-01 18:16 | XMS_ITS | Encounter Summary ---
Author Organization [employer] Address [address] [place] [address] Care Team Providers Care Clinical Interviewer Name Role Phone Unavailable Primary Care Provider Unavailabl e Encounter Details Date Type Department Care Team (Latest Contact Info) Description 03/22/1999 Outpatient Historical HIS [facility] LACY Shelley, MD Robbi NO ADDRESS ON FILE Unspecified disorder of liver (Primary Dx) Social History Tobacco Use Types Packs/Day Years Used Date Smoking Tobacco: Never Assessed Sex and Gender Information Value Date Recorded Sex Assigned at Not on file Legal Sex Male 5:28 AM SUPERVISOR KENNEL Gender Identity Not on file Sexual Orientation Not on file documented as of this encounter Plan of Treatment Not on file documented as of this encounter Visit Diagnoses Diagnosis Unspecified disorder of liver- Primary documented in this encounter
--- OUTSIDE RECORDS SUMMARY | 2025-01-01 18:16 | XMS_ITS | Encounter Summary ---
Author Organization [employer] Address [address] [place] [address] Care Team Providers Care Ceramic Artist Name Role Phone Unavailable Primary Care Provider Unavailabl e Encounter Details Date Type Department Care Team (Latest Contact Info) Description 03/17/2000 Outpatient Historical HIS 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
--- OUTSIDE RECORDS SUMMARY | 2025-01-01 18:16 | XMS_ITS | Encounter Summary ---
Author Organization [employer] Address 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
--- OUTSIDE RECORDS SUMMARY | 2025-01-01 18:16 | XMS_ITS | Clinical Summary ---
Author Organization [facility] Address [address], [address] [address] Phone Care Team Providers Care Coverage Specialist Rn Name Role Phone Flynn Pryor MD Primary Care Provider [phone] Liana Barraza APRN, ORGAN PIPE VOICER Unavailable [phone] Allergies Active Allergy Reactions Criticality Noted Date [...] Type Department Care Team Description 11/27/2024 Refill [facility] [place] [address] [address] Flynn Pryor MD Medication Refill 11/[facility] [place] [facility] [address] [address] Flynn Pryor MD Medication Refill 11/02/2024 Refill [facility] [place] [facility] [place] [address] Flynn Pryor MD Medication Refill (atorvastatin) from [...] drink = 0.6 oz pur e alcohol) [facility] Utilities Answer Date Recorded In the past [...] often do you attend chur ch or buddhist services? Never 05/03/2024 Do you belong to any clubs o r organizations such as muslim groups, unions, fraternal or athletic groups, or [...] Score - Questions 1-9 0 0 05/2024 [facility] - Occupational Stress [...] any time in the past 12 m [facility], were you homeless or living in a fdc (including now)? No 05/03/2024 Sex and Gender [...] Visit [facility] - Neurology [facility] [address] [place] [id number] Liana Barraza, CARPENTER MAINTENANCE, ORGAN PIPE VOICER [address] [place] [address] 05/25/2025 11:00 AM CDT Office Visit [facility] - Primary Care - [place] [address] [place] [address] Flynn Pryor MD [address] [place] [address] Health Maintenance Due Date Last Done Comments [...] BLOOD IMMUNOASSAY (IFOB) Routine 11/05/2017 10:30 AM DIRECTOR OF GROUP COUNSELING PROGRAM Screen for colon cancer PSA SCREEN Routine 02/27/2016 9:59 AM CDT Routine general medical examination at a health care facility (Adult) Medication management Prostate cancer screening Seizures Hyperlipidemia, unspecified hyperlipidemia type Hypothyroidism, unspecified type from Last 3 Months or Most Recently Relevant to Health Maintenance Results * HEPATITIS C ANTIBODY (05/24/2024 11:23 AM CDT) Pathologist [facility] hepatitis C antibody 0.10 <1 S/CO 05/24/2024 9:08 PM CDT [facility] Comment: Signal/Cutoff ratio < 0.79 is Nondetected Signal/Cutoff ratio 0.80-0.99 is Grayzone Signal/Cutoff ratio > 0.99 is Detected Supplemental assays are recommended if signal/cutoff ratio is >/=1.00. Signal/cutoff ratio result >/= 5.00 is 97% predictive of positivity for recombinant immunoblot assay (RIBA) and will be reported to the [place] Department of Public Health as required. Blood Venipuncture / Unknown 05/24/2024 11:23 AM CDT 05/24/2024 11:23 AM CDT us Flynn Pryor MD CHEMISTRY ORDERABLES Mary Kay caba Result [facility] [address] [place] [address], * STOOL, OCCULT BLOOD IMMUNOASSAY (IFOB) (11/05/2017 10:30 AM DIRECTOR OF GROUP COUNSELING PROGRAM) Pathologist [facility] OCCULT BLOOD - IFOB Negative Negative 11/06/2017 1:10 AM DIRECTOR OF GROUP COUNSELING PROGRAM [facility] Specimen of unknown material (specimen) STOOL SPECIMEN / Unknown Non-Phlebotomy Collection / Unknown 11/05/2017 10:30 AM DIRECTOR OF GROUP COUNSELING PROGRAM 11/05/2017 10:30 AM DIRECTOR OF GROUP COUNSELING PROGRAM us Flynn Pryor MD BODY FLUIDS & STOOLS CARMELA WEI Final Result [facility] [address] [place] [address], [place] * PSA SCREEN (02/27/2016 9:59 AM CDT) PSA SCREEN, TOTAL 0.57 0.00 - 4.00 ng/mL 02/27/2016 12:51 PM CDT [facility] Blood specimen (specimen) Venipuncture / Unknown 02/27/2016 9:59 AM CDT 02/27/2016 10:13 AM CDT Narrative [facility] - 02/27/2016 12:51 PM CDT PSA NOTE: The PSA value should be used in conjunction with information available from clinical evaluation and other diagnostic procedures. us Sourav Porras DO CHEMISTRY ORDERABLES Final Resul t [facility] [address] [place] [address] from Last 3 Months or Most Recently Relevant to Health Maintenance Insurance MEDICARE C [facility] Care Teams Coverage Specialist Rn Relationship Specialty Start Date End Date Flynn Pryor MD [address] [place] [address] PCP - General Internal Medicine 05/21/23 Liana Barraza APRN, ORGAN PIPE VOICER [address] [place] [address] Nurse Practitioner Advanced Practice Nurse 03/24/24 Carrie Casey OD Consulting Physician Optometry 05/24/24
--- OUTSIDE RECORDS SUMMARY | 2025-01-01 18:16 | XMS_ITS | Encounter Summary ---
Author Organization [employer] Address 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
--- OUTSIDE RECORDS SUMMARY | 2025-01-01 18:16 | XMS_ITS | Encounter Summary ---
Author Organization [employer] Address [address] [place] [address] Care Team Providers Care Wool Sacker Name Role Phone Unavailable Primary Care Provider Unavailabl e Encounter Details Date Type Department Care Team (Latest Contact Info) Description 04/08/2001 Outpatient Historical HIS [facility] LACY Shelley, MD Robbi NO ADDRESS ON FILE Intracranial injury of other and unspecified nature, without mention of open intracranial wound, with no loss of consciousness (CMS/HCC) (Primary Dx) Social History Tobacco Use Types Packs/Day Years Used Date Smoking Tobacco: Never Assessed Sex and Gender Information Value Date Recorded Sex Assigned at Not on file Legal Sex Male 5:28 AM EXPERIENTIAL 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
--- OUTSIDE RECORDS SUMMARY | 2025-01-01 18:16 | XMS_ITS | Encounter Summary ---
Author Organization [employer] Address 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
--- OUTSIDE RECORDS SUMMARY | 2025-01-01 18:16 | XMS_ITS | Encounter Summary ---
Author Organization [employer] Address 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
--- OUTSIDE RECORDS SUMMARY | 2025-01-01 18:16 | XMS_ITS | Encounter Summary ---
Author Organization [employer] Address [address] [place] [address] Care Team Providers Care Sign Board Erector Name Role Phone Unavailable Primary Care Provider Unavailabl e Encounter Details Date Type Department Care Team (Late st Contact Info) Description 09/21/2007 Outpatient Historical Division of Neurology [address] [address] Terry Olson MD [address] [place] [address] Social History Tobacco Use Types Packs/Day Years Used Date Smoking Tobacco: Never Assessed Sex and Gender Information Value Date Recorded Sex Assigned at Not on file Legal Sex Male 5:28 AM TWISTER HAND Gender Identity Not on file Sexual Orientation Not on file documented as of this encounter Plan of Treatment Not on file documented as of this encounter Visit Diagnoses Not on filedocumented in this encounter
--- OUTSIDE RECORDS SUMMARY | 2025-01-01 18:16 | XMS_ITS | Clinical Summary ---
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
--- OUTSIDE RECORDS SUMMARY | 2025-01-01 18:16 | XMS_ITS | Encounter Summary ---
Author Organization [facility] Address [address] [place] [address] Phone Care Team Providers Care Instrument Technician Apprentice Name Role Phone Flynn Pryor MD Primary Care Provider [phone] Liana Barraza APRN, [facility] Unavailable [phone] Reason for Visit * Reason Comments Medication Refill Encounter Details Date Type Department Care Team (Late st Contact Info) Description 06/04/2024 Refill [facility] - [place] - [place] [address] [place] [address] Flynn Pryor MD [address] [place] [address] Medication Refill Social History Tobacco Use Types Packs/Day Years Used Date Smoking Tobacco: Never Smokeless Tobacco: Never Alcohol Use Standard Drinks/Week Comments No 0 (1 standard drink = 0.6 oz pur e alcohol) [facility] Utilities Answer Date Recorded In the past 12 months has [employer], gas, oil, or water [facility] [employer] threatened to shut off services in your [...] How often do you attend chur or sikh services? Never 05/03/2024 Do you belong to any clubs o r organizations such as worship groups, unions, fraternal or athletic groups, or [...] Total Score - Questions 1-9 0 05/2024 [facility] Occupat ional Health - Occupational [...] any time in the past 12 m [facility], were you homeless or living [...] Dept 05/24/24 Office Visit Flynn Pryor MD [facility] 11/03/23 Office Visit Flynn Pryor MD [facility] Showing recent visits within past 365 days and meeting all other requirements Future Appointments No visits were found meeting these conditions. Showing future appointments within next 90 days and meeting all other requirements documented in this encounter Plan of Treatment Upcoming Encounters Date Type Department Care Team (Late st Contact Info) Description 02/10/2025 10:30 AM CDT [facility] [place] [address] [place] [address] Liana Barraza APRN, [place] [address] [place] [address] 05/25/2025 11:00 AM CDT Office Visit [facility] - Primary Care - [place] [address] [place] [address] Flynn Pryor MD [address] [place] [address] documented as of this encounter Visit Diagnoses Not on filedocumented in this encounter Additional Health Concerns Assessment Noted Time PHQ-9 Depression Total Score: 0 05/03/20 24 11:05 AM CDT documented as of this encounter Care Teams Instrument Technician Apprentice Relationship Specialty Start Date End Date Flynn Pryor MD [address] [place] [address] PCP - General Internal Medicine 05/21/23 Liana aBrraza APRN, [place] [address] [place] [address] Nurse Practitioner Advanced Practice Nurse 03/24/24 Carrie Casey OD Consulting Physician Optometry 05/24/24 documented as of this encounter
--- NOTE | 2025-01-01 18:18 | ED_ITS ---
HPI - Fall General Chief Complaint: Fall Stated Complaint: fall Time Seen by Provider: 01/01/25 18:06 Source: patient and family Mode of arrival: ambulatory History of Present Illness HPI Narrative: this is a 64-year-old male with history of traumatic brain injury that had a fall on Friday striking the right side of his rib area with no other injuries, no head injury no loss of consciousness no prolonged down time no fever chills no other injuries noted. The patient is not short of breath but does have pain to the right rib area. Onset (ago): day(s) Fall from: standing Fall witnessed: yes, by family Place fall occurred: home Loss of consciousness: none Prolonged down time: no Symptoms prior to fall: none Context: tripped/slipped Severity: moderate Severity scale (1-10): 6 Related Data Allergies Allergy/AdvReac Type Severity Reaction Status Date / Time Penicillins Allergy Intermediate Unknown Verified 02/04/23 09:06 Sulfa (Sulfonamide Allergy Hives Verified 02/04/23 09:06 Antibiotics) Review of Systems Review of Systems: All systems reviewed & are unremarkable except as noted in HPI and below PMFSH Past Medical History Medical History (Updated 01/01/25 @ 18:36 by Jose Weiner MD) 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), closed TBI (traumatic brain injury) Hypothyroidism Seizure disorder Hyperlipidemia Family History Family History Mother Depression Family history of hypothyroidism Hypertension Social History Social History Smoking status: Never smoker Alcohol intake: never Substance use: never Substance use type: does not use Living arrangements: with family Gender identity (if verbalized by the patient): Male Exam Const: General: no acute distress Nutritional Appearance: thin Limitations: no limitations HENMT: Head: normal to inspection Neck: Neck: normal visual inspection, no lymphadenopathy and no meningeal signs Chest: Chest palpation & inspection: normal inspection of the chest Resp: Effort & Inspection: normal respiratory effort Auscultation: clear to auscultation bilaterally Cardio: Rate: regular rate Rhythm: regular rhythm GI: GI Palp: Yes Soft to palpation Auscultation: normal bowel sounds Skin: Other: Bruising right rib area Neuro: General: moves all extremities, no meningeal signs and no focal motor deficits Extrem: Other: tender right ribs with palpation Course Course Emergency Course: patient pain in the right rib area receive 60mg IM Toradol an x-ray of the right ribs performed and reviewed with patient and family. Vital Signs Vital signs: Vital Signs Temperature 36.3 C L 01/01/25 17:56 Pulse Rate 94 01/01/25 17:56 Respiratory Rate 18 01/01/25 17:56 Blood Pressure 140/83 01/01/25 17:56 Pulse Oximetry 100 01/01/25 17:56 Oxygen Delivery Room Air 01/01/25 17:56 Temperature 36.3 C L 01/01/25 17:56 Pulse Rate 94 01/01/25 17:56 Respiratory Rate 18 01/01/25 17:56 Blood Pressure 140/83 01/01/25 17:56 Pulse Oximetry 100 01/01/25 17:56 Oxygen Delivery Room Air 01/01/25 17:56 Critical Care Time Critical Care Time Critical Care Time: No Discharge Plan Discharge Clinical Impression: Closed rib fracture Qualifiers: Encounter type: initial encounter Rib fracture type: single rib Laterality: right Qualified Code(s): S22.31XA - Fracture of one rib, right side, initial encounter for closed fracture Patient Disposition: Home, Self-Care Condition: Stable Instructions: Antibiotic Form, Rib Fracture (ED) Additional Instructions: advised to take medication as prescribed and follow-up with primary care physician within 1 week for further evaluation and treatment. Patient Language: Macanese Prescriptions: New naproxen 500 mg tablet 500 mg PO BID PRN (Reason: pain) Qty: 20 0RF No Action naproxen 500 mg tablet 500 mg PO BID Qty: 14 0RF pantoprazole 40 mg tablet,delayed release (DR/EC) See Rx Instructions .ROUTE .COMPLEX Qty: 14 0RF Dose Instruction: TAKE 1 TABLET BY MOUTH EVERY DAY Rx Instructions: TAKE 1 TABLET BY MOUTH EVERY DAY levothyroxine 25 mcg tablet See Rx Instructions .ROUTE .COMPLEX Qty: 14 0RF Dose Instruction: TAKE 1 TABLET BY MOUTH EVERY DAY Rx Instructions: TAKE 1 TABLET BY MOUTH EVERY DAY carbamazepine [Tegretol] 200 mg tablet See Rx Instructions .ROUTE .COMPLEX Qty: 60 0RF Dose Instruction: TAKE 1 TABLET BY MOUTH 3 TIMES A DAY Rx Instructions: TAKE 1 TABLET BY MOUTH 3 TIMES A DAY atorvastatin 20 mg tablet See Rx Instructions .ROUTE .COMPLEX Qty: 30 1RF Dose Instruction: TAKE 1 TABLET BY MOUTH EVERY DAY Rx Instructions: TAKE 1 TABLET BY MOUTH EVERY DAY Follow-up/Referrals: Roya,Flynn Whitman MD [Primary Care Provider] - Time of Disposition: 18:37
[2025-01-01] MEDS: KETOROLAC (*BKC) 60 MG/2 ML VIAL IM (18:26)
== END 2025-01-01 18:40 | disposition home or self-care (01) ==
PROVIDERS: Emergency Provider Emergency Medicine; PCP Internal Medicine
DX: S22.31XA Fracture of one rib, right side, initial encounter for closed fracture (principal); E03.9 Hypothyroidism, unspecified; E78.5 Hyperlipidemia, unspecified; W01.0XXA Fall on same level from slipping, tripping and stumbling without subsequent striking against object, initial encounter
CPT/HCPCS: 71100; 96372; 99283; J1885